=== PATIENT | male | born 1950 | race African-American/Black ===

== ENCOUNTER 2023-06-29 10:50 | Emergency (ER) | payer OTHER ==
[2023-06-29 11:30] VITALS: BP 186/83; PULSE 81; RESP 19; TEMP 98.4; BMI 27.8
[2023-06-29] MEDS ORDERED: ACETAMINOPHEN 500 MG TABLET (FP) ONE (12:16)
[2023-06-29] MEDS: ACETAMINOPHEN 500 MG TABLET (FP) PO ONE (12:19)
== END 2023-06-29 15:08 | disposition home or self-care (01) ==
LOC: JERFT 10:50
DX: S09.90XA Unspecified injury of head, initial encounter (principal); R42 Dizziness and giddiness; W00.0XXA Fall on same level due to ice and snow, initial encounter; Y92.481 Parking lot as the place of occurrence of the external cause
CPT/HCPCS: 70450-TC; 99284-25